=== PATIENT | male | born 1960 | race Caucasian/White ===

== ENCOUNTER 2017-11-22 10:58 | Emergency (ER) | payer OTHER ==
--- NOTE | 2017-11-22 11:10 | UC ---
Cardiac HPI - HPI Summary HPI Summary: chest pain x 3 days , + sob Hx of CAD s/p SD / AFib / Mitral valve replacement 3 weeks ago left sided chest pain x 3 days, no radiation, pain is no exertion , + sob no cough , no fever, no chills - History of Current Complaint Stated Complaint: SOB/CHEST PAINS Time Seen by Provider: 11/22/17 11:01 Hx Obtained From: Patient Onset/Duration: Gradual Onset, Lasting Days - 3, Still Present Timing: Constant Initial Severity: Moderate Current Severity: Moderate Chest Pain Location: Left Anterior Character: Tightness Aggravating Factor(s): Exertion Alleviating Factor(s): Rest Associated Signs & Symptoms: Positive: Chest Pain, SOB - Risk Factors Cardiac Risk Factors: Hypertension, Elevated Lipids, Prior SD, CAD - Allergy/Home Medications Allergies/Adverse Reactions: Allergies Allergy/AdvReac Type Severity Reaction Status Date / Time No Known Allergies Allergy Verified 11/22/17 11:16 Home Medications: Home Medications Acetaminophen TAB* [Tylenol TAB*] 650 mg PO Q4H PRN 11/22/17 [History Confirmed 11/22/17] Ascorbic Acid TAB* [Vitamin C TAB*] 500 mg PO DAILY 11/22/17 [History Confirmed 11/22/17] Aspirin EC TAB* [Ecotrin EC Low Dose 81 MG*] 81 mg PO DAILY 11/22/17 [History Confirmed 11/22/17] Atorvastatin* [Lipitor*] 40 mg PO DAILY 11/22/17 [History Confirmed 11/22/17] Carvedilol TAB* [Coreg TAB*] 3.125 mg PO BID 11/22/17 [History Confirmed ] Docusate CAP* [Colace Cap*] 100 mg PO BID 11/22/17 [History Confirmed 11/22/17] Ferrous Gluconate TAB* [Fergon TAB*] 325 mg PO BID 11/22/17 [History Confirmed 11/22/17] Folic Acid TAB* [Folvite TAB*] 1 mg PO DAILY 11/22/17 [History Confirmed ] Furosemide TAB* [Lasix TAB*] 40 mg PO DAILY 11/22/17 [History Confirmed 11/22/17 ] Omeprazole CAP* [Prilosec CAP* 20 MG] 20 mg PO DAILY 11/22/17 [History Confirmed 11/22/17] Potassium Chlor TAB* [Klor Con ER TAB*] 10 meq PO DAILY 11/22/17 [History Confirmed 11/22/17] Sacubitril/Valsartan (NF) [Entresto (NF)] 1 tab PO BID 11/22/17 [ History Confirmed 11/22/17] Simethicone TAB* [Mylicon TAB*] 160 mg PO Q6H PRN 11/22/17 [History Confirmed ] Spironolactone TAB* [Aldactone TAB*] 12.5 mg PO DAILY 11/22/17 [History Confirmed 11/22/17] Vitamin THERAPEUTIC TAB* [Theragran TAB*] 1 tab PO DAILY 11/22/17 [History Confirmed 11/22/17] Warfarin TAB(*) [Coumadin TAB(*)] 4 mg PO SUMOWEFRSA 11/22/17 [History Confirmed 11/22/17] Warfarin TAB(*) [Coumadin TAB(*)] 6 mg PO TUTH 11/22/17 [History Confirmed 11/22] oxyCODONE/Acetamin 5/325 MG* [Percocet 5/325 TAB*] 1 - 2 tab PO Q4H PRN MDD 8 [History Confirmed 11/22/17] PMH/Surg Hx/FS Hx/Imm Hx Cardiovascular History: Cardiac Disease, Hypertension, Myocardial Infarction, Atrial Fibrillation - Family History Known Family History: Positive: Hypertension Review of Systems Constitutional: Fatigue Skin: Negative Eyes: Negative ENT: Negative Respiratory: Shortness Of Breath Cardiovascular: Chest Pain Gastrointestinal: Negative Is Patient Immunocompromised?: No All Other Systems Reviewed And Are Negative: Yes Physical Exam Triage Information Reviewed: Yes Appearance: Ill-Appearing Vital Signs Reviewed: Yes Eyes: Positive: Conjunctiva Clear ENT: Positive: Normal ENT inspection, Hearing grossly normal, Pharynx normal Neck exam: Normal Neck: Positive: Supple, Nontender, No Lymphadenopathy Respiratory: Positive: Chest non-tender, Lungs clear, Normal breath sounds Cardiovascular: Positive: RRR, No Murmur, Pulses Normal Skin Exam: Normal Diagnostics - EKG Cardiac Rate: NL - 90, Other Rate - RBBB Cardiac Rhythm: Sinus: Normal Ectopy: None ST Segment: Normal - Clinical Impression Provider Diagnoses: chest pain Discharge - Sign-Out/Discharge Documenting (check all that apply): Discharge/Admit/Transfer - Discharge Plan Condition: Good Disposition: HOME Patient Education Materials: Chest Wall Pain (ED) Referrals: Antwon Cortez MD [Primary Care Provider] - Additional Instructions: please go to [facility] ED for evaluation of chest pain - Billing Disposition and Condition Condition: GOOD Disposition: Home
[2017-11-22 11:19] VITALS: BP 145/74
== END 2017-11-22 11:40 | disposition home or self-care (01) ==
LOC: UCCORT 10:58
DX: R07.9 Chest pain, unspecified (principal); R06.02 Shortness of breath; I25.2 Old myocardial infarction; Z95.2 Presence of prosthetic heart valve; I10 Essential (primary) hypertension
CPT/HCPCS: 93005; 99212; G0463